=== PATIENT | female | born 2000 | race Two or more races ===

== ENCOUNTER 2021-03-21 18:05 | Emergency (ER) | payer OTHER ==
[~2021-03-21] VITALS: Ht 154.9 cm; Wt 54.4 kg
--- NOTE | 2021-03-21 18:25 | NUR ---
The patient is bibmother, c/o dysuria x 1 day. Rates pain 4/10. Abdomen soft and non-distended. Will continue to monitor the patient.
[2021-03-21 18:51] LABS: BILIRUBIN,URINE Negative (NEGATIVE); COLOR,URINE YELLOW (YELLOW); LEUKOCYTE ESTERASE ,URINE Negative (NEGATIVE); NITRITE, URINE Negative (NEGATIVE); PH,URINE 6.5 (5.0-8.0); PROTEIN,URINE Negative (NEGATIVE); UGLUCOSE Negative (NEGATIVE); UROBILINOGEN,URINE 0.2 EU/dL (0.2)
[2021-03-21 18:53] LABS: BACTERIA,URINE Rare /HPF (None Seen); SQUAMOUS EPITHELIAL CELL,UR Few /HPF (None Seen); WBC,URINE NONE SEEN /HPF (0-3)
[2021-03-21] MEDS ORDERED: NITR100C6 PO (19:02)
[2021-03-21] MEDS ORDERED: PHEN-704 PO (19:02)
[2021-03-21 19:24] VITALS: BP 116/67
--- NOTE | 2021-03-21 19:24 | NUR ---
Patient discharged to home in stable condition. Written and verbal after care instructions given. Patient verbalizes understanding of instruction.
== END 2021-03-21 19:25 | disposition home or self-care (01) ==
LOC: ER 18:10
DX: N39.0 Urinary tract infection, site not specified (principal); F32.9 Major depressive disorder, single episode, unspecified; F41.9 Anxiety disorder, unspecified; Z79.899 Other long term (current) drug therapy
CPT/HCPCS: 81001; 84703-TC

== ENCOUNTER 2021-12-29 01:08 | Emergency (ER) | payer OTHER ==
[~2021-12-29] VITALS: Ht 157.5 cm; Wt 59.9 kg
[~2021-12-29 01:08] MED LIST: NITR100C6 PO; PHEN-704 PO
[2021-12-29] MEDS ORDERED: LORAZEPAM INJ 2 MG/ML VIAL ONE (01:24)
[2021-12-29] MEDS ORDERED: LORAZEPAM INJ 2 MG/ML VIAL IM ONE (01:30)
--- NOTE | 2021-12-29 01:35 | NUR ---
TO ER BED 13. [id number] FOR MARIJUANA USE. PT IS AGITATED ON ARRIVAL. BELONGINGS OBTAINED AND SECURED IN LOCKER. BREATHING IS EVEN AND NONLABORED. CONNECTED TO MONITOR. AWAITING MD ORDERS
[2021-12-29 01:56] LABS: BASOPHILS # (AUTO) 0.1 K/uL (0.0-0.2); BASOPHILS % (AUTO) 0.7 % (0.0-2.0); EOSINOPHILS % (AUTO) 0.3 % (0.0-6.0); HEMATOCRIT 33 % (33-45); LYMPHOCYTES # (AUTO) 1.7 K/uL (0.8-4.8); LYMPHOCYTES % (AUTO) 16.5 % (20.0-44.0); MEAN CORPUSCULAR HGB CONC 31 g/dl (31.0-36.0); MEAN CORPUSCULAR VOLUME 70 fL (82-100); MONOCYTES # (AUTO) 0.7 K/uL (0.1-1.30); MONOCYTES % (AUTO) 6.7 % (2.0-12.0); NEUTROPHILS % (AUTO) 75.8 % (43.0-81.0); PLATELET COUNT (AUTO) 347 K/uL (150-450); RED BLOOD CELL COUNT(AUTO) 4.65 MIL/uL (4.0-5.2); WHITE BLOOD COUNT (AUTO) 10.6 K/uL (4.3-11.0)
[2021-12-29 03:34] LABS: ACETAMINOPHEN 0 ug/ml (10-30); ALANINE AMINOTRANSFERASE 13 U/L (12-78); ALBUMIN 4.6 g/dL (3.4-5.0); ALKALINE PHOSPHATASE 89 U/L (46-116); ASPARTATE AMINOTRANSFERASE 15 U/L (15-37); BILIRUBIN,DIRECT 0.1 mg/dL (0.0-0.2); BILIRUBIN,TOTAL 0.2 mg/dL (0.2-1.0); CALCIUM, SERUM 9.3 mg/dL (8.5-10.1); CARBON DIOXIDE 27 mmol/L (21-32); CREATININE 0.7 mg/dL (0.6-1.3); GLUCOSE 108 mg/dL (74-106); TOTAL PROTEIN, SERUM 8.5 g/dL (6.4-8.2); UREA NITROGEN, BLOOD 9 mg/dL (7-18)
[2021-12-29 03:40] LABS: CHLORIDE 105 mmol/L (98-107); POTASSIUM 3.7 mmol/L (3.5-5.1); SODIUM SERUM 143 mmol/L (136-145)
[2021-12-29 03:41] LABS: EOSINOPHILS % (MANUAL) 1 % (0-4); MONOCYTES % (MANUAL) 8 % (0-11.0)
[2021-12-29 03:42] LABS: BASOPHILS % (MANUAL) 0 % (0.0-2.0); LYMPHOCYTES % (MANUAL) 15 % (16-48); NEUTROPHILS % (MANUAL) 76 (42-76)
[2021-12-29 03:44] LABS: ALCOHOL, BLOOD < 3 mg/dL (0-0)
--- NOTE | 2021-12-29 05:57 | NUR ---
URINE SAMPLE COLLECTED AND SENT TO LAB
--- NOTE | 2021-12-29 06:29 | NUR ---
Patient discharged to home in stable condition. Written and verbal after care instructions given. Patient verbalizes understanding of instruction.
[2021-12-29 07:01] VITALS: BP 130/84
[2021-12-29 08:23] LABS: BILIRUBIN,URINE NEGATIVE (NEGATIVE); COLOR,URINE YELLOW (YELLOW); LEUKOCYTE ESTERASE ,URINE NEGATIVE (NEGATIVE); NITRITE, URINE NEGATIVE (NEGATIVE); PROTEIN,URINE NEGATIVE (NEGATIVE); UGLUCOSE NEGATIVE (NEGATIVE); UROBILINOGEN,URINE 0.2 EU/dL (0.2)
[2021-12-29 08:40] LABS: BACTERIA,URINE None seen /HPF (None Seen); RBC,URINE NONE SEEN /HPF (0-2); SQUAMOUS EPITHELIAL CELL,UR 0-2 /HPF (None Seen); WBC,URINE 0-2 /HPF (0-3)
== END 2021-12-29 07:01 | disposition home or self-care (01) ==
LOC: ER 01:17
DX: F12.10 Cannabis abuse, uncomplicated (principal); R45.1 Restlessness and agitation; F32.A Depression, unspecified; F41.9 Anxiety disorder, unspecified; Z79.899 Other long term (current) drug therapy
CPT/HCPCS: 36415; 80048; 80076; 80143; 80307; 80320; 81001; 85007; 85025; 96372; 99283; J2060; G0480

== ENCOUNTER 2022-02-03 19:36 | Emergency (ER) | payer OTHER ==
[~2022-02-03] VITALS: Ht 154.9 cm; Wt 68.0 kg
--- NOTE | 2022-02-03 20:32 | NUR ---
BIBS C/O LEFT HIP/SHOULDER PAIN S/P "CART FELL ON ME AT WORK" -HT -KO. PT IS ALERT AND ORIENTED. AMBULATORY WITH STEADY GAIT. CONNECTED TO MONITOR. VSS. AWAITING MD ORDERS
--- NOTE | 2022-02-03 20:36 | NUR ---
URINE COLLECTED AND SENT TO LAB
--- NOTE | 2022-02-03 20:49 | NUR ---
DR LAW CARR AT PT'S BEDSIDE
--- NOTE | 2022-02-03 21:20 | NUR ---
COMBO WELDER AT PT'S BEDSIDE
--- NOTE | 2022-02-03 22:20 | NUR ---
Patient discharged to home in stable condition. Written and verbal after care instructions given. Patient verbalizes understanding of instruction.
[2022-02-03 22:21] VITALS: BP 130/60
== END 2022-02-03 23:20 | disposition home or self-care (01) ==
LOC: ER 19:52
DX: S30.1XXA Contusion of abdominal wall, initial encounter (principal); S49.92XA Unspecified injury of left shoulder and upper arm, initial encounter; F32.A Depression, unspecified; F41.9 Anxiety disorder, unspecified; Z79.899 Other long term (current) drug therapy; W20.8XXA Other cause of strike by thrown, projected or falling object, initial encounter; Y93.89 Activity, other specified; Y92.89 Other specified places as the place of occurrence of the external cause; Y99.0 Civilian activity done for income or pay
CPT/HCPCS: 73030-TC; 73502; 84703-TC